=== PATIENT | female | born 1980 | race Caucasian/White ===

== ENCOUNTER 2019-09-18 16:03 | Emergency (ER) | payer BC, OTHER ==
[2019-09-18] MEDS ORDERED: ACETAMINOPHEN 1000 MG/100 ML VIAL (NON FORMULARY) IVPB ONE (16:10)
[2019-09-18] MEDS ORDERED: SODIUM CHLORIDE 1,000 ML IV STA (16:10)
--- NOTE | 2019-09-18 16:10 | PDOC ---
Rapid Medical Evaluation Time Seen by Provider: 09/18/19 16:05 Medical Evaluation: 09/18/19 16:05 I have performed a brief in-person evaluation of this patient. CC: R pelvic pain radiating to back; +intermittent nausea PE: No CVAT. Abd SNTND. Orders: urine, labs, imaging deferred to ED provider Patient will proceed to ED for further evaluation. Discharge Disposition - Diagnosis Pelvic pain - Referrals - Patient Instructions - Post Discharge Activity
[2019-09-18 16:21] VITALS: BMI 34.1
[2019-09-18] MEDS ORDERED: ACETAMINOPHEN INJECTION 100 ML IVPB ONE ×2 (17:03→17:09)
[2019-09-18] MEDS ORDERED: CEFTRIAXONE 250 MG in DEXTROSE 5%-WATER - 50 ML IVPB ONE (17:03)
[2019-09-18] MEDS ORDERED: AZITHROMYCIN 500 MG TABLET PO ONE ×2 (17:06→20:22)
[2019-09-18 17:09] LABS: BASO % 0.7 % (0-2.0); EOS % 0.2 % (0-4.5); HEMATOCRIT 37.4 % (32.4-45.2); HEMOGLOBIN 12.5 GM/dL (10.7-15.3); LYMPH % 16.5 % (8-40); MCH 29.8 pg (25.7-33.7); MCHC 33.5 g/dl (32.0-36.0); MEAN PLT VOLUME 8.3 fl (7.5-11.1); MONO % 6.6 % (3.8-10.2); PLATELET COUNT 147 K/MM3 (134-434); RBC 4.21 M/mm3 (3.60-5.2); RDW 13.5 % (11.6-15.6); WHITE BLOOD COUNT 4.2 K/mm3 (4.0-10.0)
[2019-09-18 17:10] LABS: EPI CELLS 11 /uL (0-25.1); HYALINE CASTS 1 /uL (0-3.1); PH,URINE 5.5 (5.0-8.0); URINE APPEARANCE CLEAR; URINE BACTERIA 232 /uL (0-1359); URINE BILIRUBIN NEGATIVE (NEGATIVE); URINE COLOR YELLOW; URINE GLUCOSE (UA) NEGATIVE (NEGATIVE); URINE KETONE TRACE (NEGATIVE); URINE LEUK ESTERASE 1+ (NEGATIVE); URINE NITRITE NEGATIVE (NEGATIVE); URINE PROTEIN NEGATIVE (NEGATIVE); URINE RBC 29 /uL (0-23.9); URINE UROBILINOGEN 0.2 mg/dL (0.2-1.0); URINE WBC 52 /uL (0-25.8)
--- NOTE | 2019-09-18 17:12 | PDOC ---
History of Present Illness - General Chief Complaint: Pain Stated Complaint: FEVER/LOWER ABD PAIN Time Seen by Provider: 09/18/19 16:05 History Source: Patient Exam Limitations: Clinical Condition - History of Present Illness Travel History: No Initial Comments: 09/18/19 17:08 Patient with no significant past medical history present with complaint of 2-day history of right pelvic pain with fever which started at 99.9 yesterday and last worsened to 102 F overnight. Patient reported nausea but denies vomiting. Patient sexually active with one partner and reported use condoms every time. Patient not on any other control. LMP August 30. Denies vaginal discharge, vaginal bleeding, urinary frequency, history of abdominal surgery, shortness of breath, cough, chest pain, palpitation. Denies recent travel or sick contact. Patient reported going to PCP today for symptoms and was advised to come to the ER to rule out appendicitis. Denies any other symptoms Timing/Duration: reports: getting worse Quality: reports: moderate, aching Abdominal Pain Onset Location: reports: RLQ, other (right pelvic) Past History - Medical History Allergies/Adverse Reactions: Allergies Allergy/AdvReac Type Severity Reaction Status Date / Time No Known Allergies Allergy Verified 09/18/19 16:13 Home Medications: Ambulatory Orders Doxycycline Hyclate 100 mg PO BID 10 Days #20 tablet 09/18/19 Escitalopram Oxalate [Lexapro -] 10 mg PO DAILY 09/18/19 Ibuprofen 800 mg PO Q8H PRN #20 tablet 09/18/19 - Psycho-Social/Smoking History Smoking History: Never smoked - Substance Abuse Hx (Audit-C & DAST Scrn) How often the patient has a drink containing alcohol: Never Score: In Men: 4 or > Positive; In Women: 3 or > Positive: 0 Screen Result (Pos requires Nsg. Audit-10AR): Negative Review of Systems - Review of Systems Able to Perform ROS?: Yes Is the patient limited Welsh proficient: No Constitutional: Yes: Fever. No: Chills, Malaise, Weakness HEENTM: No: Symptoms Reported, See HPI, Eye Pain, Blurred Vision, Tearing, Recent change in vision, Double Vision, Cataracts, Ear Pain, Ocular Prothesis, Ear Discharge, Nose Pain, Nose Congestion, Tinnitus, Nose Bleeding, Hearing Loss, Throat Pain, Throat Swelling, Mouth Pain, Dental Problems, Difficulty Swallowing, Mouth Swelling, Other Respiratory: No: Symptoms reported, See HPI, Cough, Orthopnea, Shortness of Breath, SOB with Exertion, SOB at Rest, Stridor, Wheezing, Productive cough, Hemoptysis, Other Cardiac (ROS): No: Symptoms Reported, See HPI, Chest Pain, Edema, Irregular Heart Rate, Lightheadedness, Palpitations, Syncope, Chest Tightness, Other ABD/GI: Yes: Symptoms Reported, See HPI, Nausea. No: Abd. Pain w/ defecation, Blood Streaked Bowels, Constipated, Diarrhea, Difficulty Swallowing, Poor Appetite, Rectal Bleeding, Vomiting, Indigestion, Abdominal cramping : Yes: Symptoms Reported, See HPI, Pain (right pelvic pain), Urgency. No: Burning, Dysuria, Discharge, Frequency, Flank Pain, Hematuria Musculoskeletal: No: Symptoms Reported, Back Pain Neurological: No: Symptoms reported All Other Systems: Reviewed and Negative *Physical Exam - Vital Signs Last Vital Signs Temp Pulse Resp BP Pulse Ox 100.1 F H 137 H 17 136/92 98 09/18/19 16:06 09/18/19 16:06 09/18/19 16:06 09/18/19 16:06 09/18/19 16:06 - Physical Exam General Appearance: Yes: Nourished, Appropriately Dressed. No: Apparent Distress HEENT: positive: AYLIN, Normal ENT Inspection Neck: positive: Supple Respiratory/Chest: positive: Lungs Clear, Normal Breath Sounds. negative: Chest Tender, Respiratory Distress, Accessory Muscle Use Cardiovascular: positive: Regular Rhythm, Regular Rate Female Pelvic Exam: positive: normal external exam, cervical os closed, normal adnexa, CMT (right CMT), discharge (moderate white discharge in vaginal vault), adnexal tenderness (right pelvic). negative: lesions, vaginal bleeding Gastrointestinal/Abdominal: positive: Normal Bowel Sounds, Flat, Soft. negative: Tender Musculoskeletal: positive: Normal Inspection. negative: CVA Tenderness Extremity: positive: Normal Capillary Refill, Normal Inspection, Normal Range of Motion Integumentary: positive: Normal Color Neurologic: positive: Fully Oriented, Alert, Normal Mood/Affect, Normal Response ED Treatment Course - LABORATORY CBC & Chemistry Diagram: 09/18/19 16:34 09/18/19 16:34 - RADIOLOGY Radiology Studies Ordered: Category Date Time Status TRANSVAGINAL ULTRASOUND US [US] Stat Ultrasound 09/18/19 16:52 Ordered Medical Decision Making - Medical Decision Making 09/18/19 17:10 Patient with no significant past medical history present with complaint of 2-day history of right pelvic pain with fever which started at 99.9 yesterday and last worsened to 102 F overnight. Patient reported nausea but denies vomiting. Patient sexually active with one partner and reported use condoms every time. Patient not on any other control. LMP August 30. Denies vaginal discharge, vaginal bleeding, urinary frequency, history of abdominal surgery, shortness of breath, cough, chest pain, palpitation. Denies recent travel or sick contact. Patient reported going to PCP today for symptoms and was advised to come to the ER to rule out appendicitis. Denies any other symptoms Exam significant for moderate tenderness to right pelvic. No abdominal tenderness. No guarding or rebound. Right cervical motion tenderness on pelvic exam with moderate white discharge in vaginal vault. No visible lesions. No CVA tenderness. Patient with low-grade temperature of 100.1 F Symptoms likely PID versus tubo-ovarian abscess versus cystitis versus less likely appendicitis. CBC, CMP, UA, urine culture and urine hCG lab ordered. Pelvic ultrasound ordered to rule out PID or tubo-ovarian abscess. IV Tylenol 1 g ordered for pain and fever. IV hydration with normal saline 1 L ordered. Genital culture of vaginal discharge obtained and sent to lab. Will treat empirically for PID with ceftriaxone 250 mg and will add azithromycin p.o. 1 g after imaging results. 09/18/19 19:32 CBC unremarkable. Chemistry unremarkable. Urine test negative. Pelvic ultrasound shows 1 cm right ovarian cyst with no other findings. Given symptoms of right side pain, will do abdominal pelvic CT with IV contrast to rule out appendicitis. Patient be discharged home on doxycycline for PID if negative CT with [facility]PERATIONS ACCOUNTANT follow-up 09/18/19 20:[address] shows no appendicitis and again showed wide 1 cm ovarian cyst. Unlikely ovarian cyst causing patient fever. Will treat empirically for PID on doxycycline twice daily for 10 days. Azithromycin 1 g p.o. given in the ED prior to discharge. Patient advised to follow-up with [facility]ATIONS [facility]ANT Discharge - Discharge Information Problems reviewed: Yes Clinical Impression/Diagnosis: Pelvic pain Fever Qualifiers: Fever type: unspecified Qualified Code(s): R50.9 - Fever, unspecified Condition: Stable Disposition: HOME - Admission No - Additional Discharge Information Prescriptions: Doxycycline Hyclate 100 mg PO BID 10 Days #20 tablet Ibuprofen 800 mg PO Q8H PRN #20 tablet PRN Reason: pain - Follow up/Referral Referrals: Nina Smalls MD [Primary Care Provider] - - Patient Discharge Instructions Patient Printed Discharge Instructions: DI for Pelvic Inflammatory Disease Additional Instructions: Your blood work was normal. Your urine shows small bacteria but does not show UTI. Urine culture sent to lab which takes a few days to come back. Ultrasound done shows small ovarian cyst on the right which could also cause pain but given pelvic pain and fever, will start you on antibiotics pending urine culture results. CAT scan done shows no appendicitis or acute abdominal abnormality. Follow-up with your OPERATIONS ACCOUNTANT - Post Discharge Activity
[2019-09-18 17:39] LABS: ALBUMIN 3.8 g/dl (3.4-5.0); BILIRUBIN,TOTAL 0.5 mg/dL (0.2-1); BLOOD UREA NITROGEN 9.2 mg/dL (7-18); CALCIUM 8.5 mg/dL (8.5-10.1); POTASSIUM 3.8 mmol/L (3.5-5.1); TOT PROT 7.5 g/dl (6.4-8.2)
[2019-09-18 18:09] LABS: HCG,QUALITATIVE URINE NEGATIVE
[2019-09-18 19:53] VITALS: BP 117/73; PULSE 85; TEMP 98.7
[2019-09-18] MEDS ORDERED: AZITHROMYCIN 500 MG TABLET ONE (20:23)
--- NOTE | 2019-09-19 10:26 | EKG ---
Test Reason : Blood Pressure : / mmHG Vent. Rate : 120 BPM Atrial Rate : 120 BPM P-R Int : 142 ms QRS Dur : 092 ms QT Int : 298 ms P-R-T Axes : 052 043 045 degrees QTc Int : 421 ms SINUS TACHYCARDIA POSSIBLE LEFT ATRIAL ENLARGEMENT INCOMPLETE RIGHT BUNDLE BRANCH BLOCK WHEN COMPARED WITH ECG OF 19-OCT-2006 10:24, VENT. RATE HAS INCREASED BY 40 BPM Confirmed by GOVIND DICKENS MD ([id number]) on 09/19/2019 10:25:50 AM Referred By: Confirmed By:GOVIND DICKENS MD
== END 2019-09-18 20:31 | disposition home or self-care (01) ==
LOC: JER 16:03
PROC: 3E0333Z Introduction of Anti-inflammatory into Peripheral Vein, Percutaneous Approach (ICD-10-PCS; principal; 2019-09-18)
PROC: 3E033GC Introduction of Other Therapeutic Substance into Peripheral Vein, Percutaneous Approach (ICD-10-PCS; 2019-09-18)
PROC: 3E0337Z Introduction of Electrolytic and Water Balance Substance into Peripheral Vein, Percutaneous Approach (ICD-10-PCS; 2019-09-18)
DX: R10.2 Pelvic and perineal pain (principal); R50.9 Fever, unspecified
CPT/HCPCS: 36415; 74177-TC; 76830-TC; 80053; 81003; 83690; 84703; 85025; 87070; 87086; 87205; 87491; 87591; 93005; 93010; 99285-25; J0131; Q9967

== ENCOUNTER 2019-09-24 13:30 | Inpatient (IN) | payer BC, OTHER ==
--- NOTE | 2019-09-24 13:45 | PDOC ---
Rapid Medical Evaluation Chief Complaint: Abnormal Lab Results (Outside) Time Seen by Provider: 09/24/19 13:34 Medical Evaluation: Allergies Allergy/AdvReac Type Severity Reaction Status Date / Time No Known Allergies Allergy Verified 09/24/19 13:35 Vital Signs Temp Pulse Resp BP Pulse Ox 99.1 F 111 H 19 139/73 100 09/24/19 13:33 09/24/19 13:33 09/24/19 13:33 09/24/19 13:33 09/24/19 13:33 09/24/19 13:37 I have performed a brief in-person evaluation of this patient. The patient presents with a chief complaint of:Dx w/ PID 09/17 and on doxy. Gc/chlam and ucx neg. US on last visit w/ R ovarian cyst w/ free fluid to right pelvis, CT neg for appy but showed lymph nodes in R pelvis per records. Labs were unremarkable on prior visit, sent in by pmd as multiple abnl on labs today, told "my wbc and rbc low" and LFTs elevated. No sig pain now and no n/v/f/c Pertinent physical exam findings:Tachy to 111, well kraig I have ordered the following:labs The patient will proceed to the ED for further evaluation. 09/24/19 13:49 Discharge Disposition - Diagnosis PID (acute pelvic inflammatory disease) - Referrals - Patient Instructions - Post Discharge Activity
[2019-09-24 14:20] LABS: BASO % 0.7 % (0-2.0); EOS % 0.4 % (0-4.5); HEMOGLOBIN 11.3 GM/dL (10.7-15.3); LYMPH % 66.3 % (8-40); MCH 29.6 pg (25.7-33.7); MCHC 33.2 g/dl (32.0-36.0); MEAN CELL VOLUME 89.1 fl (80-96); MEAN PLT VOLUME 8.9 fl (7.5-11.1); MONO % 4.4 % (3.8-10.2); NEUT % 28.2 % (42.8-82.8); PLATELET COUNT 106 K/MM3 (134-434); RBC 3.82 M/mm3 (3.60-5.2); RDW 13.8 % (11.6-15.6); WHITE BLOOD COUNT 5.1 K/mm3 (4.0-10.0)
[2019-09-24 14:43] LABS: ANISOCYTOSIS 0; MACROCYTOSIS 0; PLATELET ESTIMATE DECREASED
[2019-09-24 14:58] LABS: ALBUMIN 3.3 g/dl (3.4-5.0); BILIRUBIN,TOTAL 0.7 mg/dL (0.2-1); BLOOD UREA NITROGEN 9.7 mg/dL (7-18); CALCIUM 8.9 mg/dL (8.5-10.1); CREATININE 0.8 mg/dL (0.55-1.3); POTASSIUM 4.1 mmol/L (3.5-5.1); TOT PROT 7.1 g/dl (6.4-8.2)
--- NOTE | 2019-09-24 15:08 | PDOC ---
History of Present Illness - General Chief Complaint: Abnormal Lab Results (Outside) Stated Complaint: ABN LABS Time Seen by Provider: 09/24/19 13:34 History Source: Patient Exam Limitations: No Limitations - History of Present Illness Initial Comments: 09/24/19 15:06 39-year-old female denies past medical history sent to ED by Nina Douglas for abnormal labs. Patient was seen in the ED September 17 for right-sided pelvic pain, fever and nausea. Had an ultrasound which showed a 1 cm right ovarian cyst, a CT which ruled out appendicitis, negative gonorrhea chlamydia and was discharged with doxycycline 100 mg twice daily for 10 days for presumed PID given mild right-sided CMT on pelvic exam. 2 days ago patient followed up with Dr. Smalls given persistent fever T-max 102 despite taking ibuprofen 800 mg every 6-[address] Smalls called patient today instructing her to come to ER given decreased platelet count and increased LFTs. Patient also reports a negative COVID test 2 days ago. At this time patient has no pelvic pain. Of note patient had a mechanical slip and fall down 4 steps on her back causing injury to right low back 2 hours prior to following up with Dr. Smalls 2 days ago. Denies head strike, headache, neck pain, nausea, vomiting, chest pain, shortness of breath or any other complaints. ROS: as above PE: GENERAL: well-appearing, NAD HEAD: NCAT EYES: Pupils equal, round and reactive to light, sclera anicteric, conjunctiva clear ENT: pharynx: no erythema, no exudate, uvula midline NECK: supple CHEST: nontender RESP: clear, no w/r/r CARDIO: rrr, no m/g/r ABD: +BS, soft, nontender, non distended : Deferred BACK: no midline spinal ttp, no CVAT, large ecchymotic area to right low back and flank, soft compartments EXTREMITIES: Normal range of motion, no edema NEUROLOGICAL: Normal speech, normal gait SKIN: Warm, Dry Is this a multiple visit Asthma Patient?: No Past History - Medical History Allergies/Adverse Reactions: Allergies Allergy/AdvReac Type Severity Reaction Status Date / Time No Known Allergies Allergy Verified 09/24/19 13:35 Home Medications: Ambulatory Orders Doxycycline Hyclate 100 mg PO BID 10 Days #20 tablet 09/18/19 Escitalopram Oxalate [Lexapro -] 10 mg PO DAILY 09/18/19 Ibuprofen 800 mg PO Q8H PRN #20 tablet 09/18/19 COPD: No - Immunization History Immunization Up to Date: No - Psycho-Social/Smoking History Smoking History: Never smoked Information on smoking cessation initiated: No - Substance Abuse Hx (Audit-C & DAST Scrn) How often the patient has a drink containing alcohol: Never Score: In Men: 4 or > Positive; In Women: 3 or > Positive: 0 Screen Result (Pos requires Nsg. Audit-10AR): Negative In the last yr the pt used illegal drug/Rx for NonMed reason: No Score: Yes response is considered Positive: 0 Screen Result (Positive result requires Nsg. DAST-10): Negative *Physical Exam - Vital Signs Last Vital Signs Temp Pulse Resp BP Pulse Ox 99.1 F 111 H 19 139/73 100 09/24/19 13:33 09/24/19 13:33 09/24/19 13:33 09/24/19 13:33 09/24/19 13:33 ED Treatment Course - LABORATORY CBC & Chemistry Diagram: 09/24/19 14:00 09/24/19 14:00 - ADDITIONAL ORDERS Additional order review: Laboratory Results 09/24/19 14:00 Sodium 138 Potassium 4.1 Chloride 105 Carbon Dioxide 25 Anion Gap 8 BUN 9.7 Creatinine 0.8 Est GFR (CKD-EPI)AfAm 109.16 Est GFR (CKD-EPI)NonAf 94.18 Random Glucose 94 Calcium 8.9 Total Bilirubin 0.7 AST 372 H ALT 427 H Alkaline Phosphatase 216 H Total Protein 7.1 Albumin 3.3 L 09/24/19 14:00 RBC 3.82 MCV 89.1 MCHC 33.2 RDW 13.8 MPV 8.9 Neutrophils % 28.2 L D Lymphocytes % 66.3 H D Monocytes % 4.4 Eosinophils % 0.4 D Basophils % 0.7 Medical Decision Making - Medical Decision Making 09/24/19 15:50 39-year-old female denies past medical history sent to ED by Nina Douglas for abnormal labs. Patient was seen in the ED September 17 for right-sided pelvic pain, fever and nausea. Had an ultrasound which showed a 1 cm right ovarian cyst, a CT which ruled out appendicitis, negative gonorrhea chlamydia and was discharged with doxycycline 100 mg twice daily for 10 days for presumed PID given mild right-sided CMT on pelvic exam. 2 days ago patient followed up with Dr. Smalls given persistent fever T-max 102 despite taking ibuprofen 800 mg every 6-[address] Smalls called patient today instructing her to come to ER given decreased platelet count and increased LFTs. Patient also reports a negative COVID test 2 days ago. At this time patient has no pelvic pain. Of note patient had a mechanical slip and fall down 4 steps on her back causing injury to right low back 2 hours prior to following up with Dr. Smalls 2 days ago. Denies head strike, headache, neck pain, nausea, vomiting, chest pain, shortness of breath or any other complaints. CTAP 09/18/19 -enlarged right inguinal and right pelvic lymph nodes AST 372 ALT 427 Alk phos 216 plt 106 decrease from 09/18/19 plt [address] Smalls who would like patient admitted for hematology (Yonas Henry) and infectious disease (Dr. Isaacs) consultation and further work-up. Discussed with patient and she agrees with admission Discharge - Discharge Information Problems reviewed: Yes Clinical Impression/Diagnosis: PID (acute pelvic inflammatory disease) Fever Qualifiers: Fever type: unspecified Qualified Code(s): R50.9 - Fever, unspecified - Admission Yes - Follow up/Referral - Patient Discharge Instructions - Post Discharge Activity
[2019-09-24] MEDS ORDERED: ACETAMINOPHEN 325 MG TABLET (FP) PO PRN (16:16)
[2019-09-24 16:24] LABS: HCG,QUALITATIVE URINE Negative
[2019-09-24 16:25] LABS: EPI CELLS 32 /uL (0-25.1); HYALINE CASTS 7 /uL (0-3.1); PH,URINE 5.5 (5.0-8.0); URINE APPEARANCE CLOUDY; URINE BACTERIA 119 /uL (0-1359); URINE BILIRUBIN NEGATIVE (NEGATIVE); URINE COLOR DK YELLOW; URINE GLUCOSE (UA) NEGATIVE (NEGATIVE); URINE KETONE TRACE (NEGATIVE); URINE LEUK ESTERASE TRACE (NEGATIVE); URINE NITRITE NEGATIVE (NEGATIVE); URINE PROTEIN 1+ (NEGATIVE); URINE RBC 3868 /uL (0-23.9); URINE WBC 27 /uL (0-25.8)
[2019-09-24] MEDS ORDERED: ACETAMINOPHEN 325 MG TABLET (FP) ONE (17:01)
[2019-09-24] MEDS: D5-1/2NS+20 MEQ KCL - 20 MEQ/1,000 ML INFUS.BAG IV SCH (17:20)
[2019-09-24 18:25] VITALS: BMI 35.4
[2019-09-24 19:57] LABS: INR 1.11 (0.83-1.09); PROTHROMBIN TIME (PATIENT) 13.1 SEC (9.7-13.0)
[2019-09-24] MEDS: ACETAMINOPHEN 325 MG TABLET (FP) PO PRN (21:50)
--- NOTE | 2019-09-24 22:32 | CON.HO ---
Consult - text type - Consultation Consultation Note: 39-year-old female denies past medical history sent to ED by Nina Douglas for abnormal labs. Patient was seen in the ED September 17 for right-sided pelvic pain, fever and nausea. Had an ultrasound which showed a 1 cm right ovarian cyst, a CT which ruled out appendicitis, negative gonorrhea chlamydia and was discharged with doxycycline 100 mg twice daily for 10 days for presumed PID given mild right-sided CMT on pelvic exam. 2 days ago patient followed up with Dr. Smalls given persistent fever T-max 102 despite taking ibuprofen 800 mg every 6-[address] Smalls called patient today instructing her to come to ER given decreased platelet count and increased LFTs. Patient also reports a negative COVID test 2 days ago. At this time patient has no pelvic pain. Reports rt. sided pelvic pain improved after starting doxycycline but fevers persisted Reports being in good health until 1 week ago when RLQ pain and fevers started Had protected sex 1 month ago Allergies/Adverse Reactions: Allergies Allergy/AdvReac Type Severity Reaction Status Date / Time No Known Allergies Allergy Verified 09/24/19 13:35 Home Medications: Ambulatory Orders Doxycycline Hyclate 100 mg PO BID 10 Days #20 tablet 09/18/19 Escitalopram Oxalate [Lexapro -] 10 mg PO DAILY 09/18/19 Ibuprofen 800 mg PO Q8H PRN #20 tablet 09/18/19 - Psycho-Social/Smoking History Smoking History: Never smoked - Substance Abuse Hx (Audit-C & DAST Scrn) How often the patient has a drink containing alcohol: Never Score: In Men: 4 or > Positive; In Women: 3 or > Positive: 0 Screen Result (Pos requires Nsg. Audit-10AR): Negative In the last yr the pt used illegal drug/Rx for NonMed reason: No Score: Yes response is considered Positive: 0 Screen Result (Positive result requires Nsg. DAST-10): Negative *Physical Exam - Vital Signs Last Vital Signs Temp Pulse Resp BP Pulse Ox 99.1 F 111 H 19 139/73 100 09/24/19 13:33 09/24/19 13:33 09/24/19 13:33 09/24/19 13:33 09/24/19 13:33 - ADDITIONAL ORDERS Additional order review: Laboratory Results 09/24/19 14:00 Sodium 138 Potassium 4.1 Chloride 105 Carbon Dioxide 25 Anion Gap 8 BUN 9.7 Creatinine 0.8 Est GFR (CKD-EPI)AfAm 109.16 Est GFR (CKD-EPI)NonAf 94.18 Random Glucose 94 Calcium 8.9 Total Bilirubin 0.7 AST 372 H ALT 427 H Alkaline Phosphatase 216 H Total Protein 7.1 Albumin 3.3 L 09/24/19 14:00 RBC 3.82 MCV 89.1 MCHC 33.2 RDW 13.8 MPV 8.9 Neutrophils % 28.2 L D Lymphocytes % 66.3 H D Monocytes % 4.4 Eosinophils % 0.4 D Basophils % 0.7 A/P 39-year-old female denies past medical history sent to ED by Nina Douglas for abnormal labs. Patient was seen in the ED September 17 for right-sided pelvic pain, fever and nausea. Had an ultrasound which showed a 1 cm right ovarian cyst, a CT which ruled out appendicitis, negative gonorrhea chlamydia and was discharged with doxycycline 100 mg twice daily for 10 days for presumed PID given mild right-sided CMT on pelvic exam. 2 days ago patient followed up with Dr. Smalls given persistent fever T-max 102 despite taking ibuprofen 800 mg every 6-[address] Smalls called patient today instructing her to come to ER given decreased platelet count and increased LFTs. Patient also reports a negative COVID test 2 days ago. At this time patient has no pelvic pain. Reports rt. sided pelvic pain improved after starting doxycycline but fevers persisted Reports being in good health until 1 week ago when RLQ pain and fevers started Had protected sex 1 month ago CTAP 09/18/19 -enlarged right inguinal and right pelvic lymph nodes AST 372 ALT 427 Alk phos 216 plt 106 decrease from 09/18/19 plt 147 ANC 1400 ? pelvic inflammatory disease r/o infectious/inflammatory/neoplastic processes check flowcytometry/HIV/PRANEETH/RF/hep. serologies ? EBV pcr/LDH/COVID check chest CT/inguinal u/s
[2019-09-25 01:53] LABS: URINE APPEARANCE CLEAR; URINE BILIRUBIN NEGATIVE (NEGATIVE); URINE COLOR YELLOW; URINE GLUCOSE (UA) NEGATIVE (NEGATIVE)
[2019-09-25 01:54] LABS: URINE KETONE NEGATIVE (NEGATIVE); URINE LEUK ESTERASE N (NEGATIVE); URINE NITRITE NEGATIVE (NEGATIVE); URINE PROTEIN N (NEGATIVE); URINE UROBILINOGEN 0.2 mg/dL (0.2-1.0)
[2019-09-25 01:55] LABS: EPI CELLS 9 /uL (0-25.1); HYALINE CASTS 0.5 /uL (0-3.1); URINE BACTERIA 10 /uL (0-1359); URINE RBC 1932 /uL (0-23.9); URINE WBC 12 /uL (0-25.8)
[2019-09-25] MEDS: ACETAMINOPHEN 325 MG TABLET (FP) PO PRN (03:05)
[2019-09-25] MEDS: D5-1/2NS+20 MEQ KCL - 20 MEQ/1,000 ML INFUS.BAG IV SCH (06:24)
--- NOTE | 2019-09-25 08:16 | HP ---
Admitting History and Physical - Primary Care Physician PCP: 1 - Past Medical History Cardiovascular: No: Deep Vein Thrombosis, HTN Pulmonary: No: Cancer Gastrointestinal: No: Cancer, Crohn's Disease ...LMP: 09/22/19 ...: No Psych: Yes: Anxiety - Smoking History Smoking history: Never smoked Have you smoked in the past 12 months: No Home Medications - Allergies Allergies/Adverse Reactions: Allergies Allergy/AdvReac Type Severity Reaction Status Date / Time No Known Allergies Allergy Verified 09/24/19 13:35 - Home Medications Home Medications: Ambulatory Orders Doxycycline Hyclate 100 mg PO BID 10 Days #20 tablet 09/18/19 Escitalopram Oxalate [Lexapro -] 10 mg PO DAILY 09/18/19 Ibuprofen 800 mg PO Q8H PRN #20 tablet 09/18/19 Review of Systems - Review of Systems Neck: reports: No Symptoms Cardiovascular: reports: No Symptoms Respiratory: reports: No Symptoms Gastrointestinal: reports: Abdominal Pain (rlq which has resolved) Physical Examination Vital Signs: Vital Signs Temperature 98.3 F 09/25/19 05:00 Pulse Rate 102 H 09/25/19 05:00 Respiratory Rate 18 09/25/19 05:00 Blood Pressure 137/75 09/25/19 05:00 O2 Sat by Pulse Oximetry (%) 94 L 09/25/19 05:00 Neck: Yes: Supple Cardiovascular: Yes: Regular Rate and Rhythm Respiratory: Yes: Regular, CTA Bilaterally Gastrointestinal: Yes: Normal Bowel Sounds, Soft. No: Tenderness Extremities: Yes: WNL Neurological: Yes: Alert, Oriented Labs: CBC, BMP 09/24/19 14:00 09/24/19 14:00 Imaging - Results Cat Scan: Report Reviewed Problem List - Problems (1) Lymphadenopathy Assessment/Plan: -Oncology on board -Labs ordered -CT Chest Code(s): R59.1 - GENERALIZED ENLARGED LYMPH NODES (2) Abnormal LFTs Assessment/Plan: -R/O Viral etiology VS meds -Trending UP -Hepatitis panel ordered -US -GI consult Code(s): R94.5 - ABNORMAL RESULTS OF LIVER FUNCTION STUDIES (3) Thrombocytopenia Assessment/Plan: -HEM on Board -Follow labs Code(s): D69.6 - THROMBOCYTOPENIA, UNSPECIFIED (4) Fever Assessment/Plan: Was spiking at home on abx monitor trends ID consult Code(s): R50.9 - FEVER, UNSPECIFIED Qualifiers: Fever type: unspecified Qualified Code(s): R50.9 - Fever, unspecified (5) Pelvic pain Assessment/Plan: Resolved gc and chlamydia negative Code(s): R10.2 - PELVIC AND PERINEAL PAIN
[2019-09-25 08:44] LABS: BASO % 0.7 % (0-2.0); EOS % 0.7 % (0-4.5); HEMATOCRIT 31.7 % (32.4-45.2); HEMOGLOBIN 10.6 GM/dL (10.7-15.3); LYMPH % 74.1 % (8-40); MCH 29.8 pg (25.7-33.7); MCHC 33.5 g/dl (32.0-36.0); MEAN CELL VOLUME 88.9 fl (80-96); MEAN PLT VOLUME 8.7 fl (7.5-11.1); MONO % 3.5 % (3.8-10.2); PLATELET COUNT 108 K/MM3 (134-434); RBC 3.57 M/mm3 (3.60-5.2); RDW 13.7 % (11.6-15.6); WHITE BLOOD COUNT 4.4 K/mm3 (4.0-10.0)
[2019-09-25 08:51] LABS: INR 1.06 (0.83-1.09); PROTHROMBIN TIME (PATIENT) 12.5 SEC (9.7-13.0)
[2019-09-25 08:53] LABS: ACTIVATED PTT 34.1 SECONDS (25.2-36.5)
[2019-09-25 09:20] LABS: LDH 498 U/L (84-246)
[2019-09-25 09:23] LABS: ALK PHOS 198 U/L (45-117); ANION GAP 8 MMOL/L (8-16); BILIRUBIN,TOTAL 0.5 mg/dL (0.2-1); BLOOD UREA NITROGEN 7.1 mg/dL (7-18); CALCIUM 8.4 mg/dL (8.5-10.1); CHLORIDE 109 mmol/L (98-107); CO2 25 mmol/L (21-32); CREATININE 0.8 mg/dL (0.55-1.3); GLUCOSE,RANDOM 94 mg/dL (74-106); SGOT/AST 284 U/L (15-37); SGPT/ALT 392 U/L (13-61); SODIUM 142 mmol/L (136-145); TOT PROT 6.8 g/dl (6.4-8.2)
[2019-09-25 09:36] LABS: ANISOCYTOSIS 1+; MACROCYTOSIS 0; PLATELET ESTIMATE DECREASED
[2019-09-25 09:42] LABS: GAMMA GLUTAMYL TRANSPEPTIDASE 190 U/L (5-85); URIC ACID 4.5 mg/dL (2.6-7.2)
--- NOTE | 2019-09-25 10:46 | PN ---
Physical Exam: SUBJECTIVE: Patient seen and examined. Pt. denies this ever happening before. Pt. states her abdominal pain has resolved. Pt. endorses having an unremarkable Pap-Smear 2 years ago and states all have been negative in the past. Pt. is looking for a new PHYSICAL MEDICINE PHYSICIAN. Pt. OBJECTIVE: Vital Signs Period Temp Pulse Resp BP Sys/Negrete Pulse Ox Last 24 Hr 97.9 F-99.8 F 89-111 16-19 106-139/67-80 94-100 GENERAL: The patient is awake, alert, and fully oriented, in no acute distress. HEAD: Normal with no signs of trauma. EYES: Sclera anicteric, conjunctiva clear. ENT: Ears normal, nares patent, oropharynx clear without exudates, moist mucous membranes. LUNGS: Breath sounds equal, clear to auscultation bilaterally, no wheezes, no crackles, no accessory muscle use. HEART: Regular rate and rhythm, S1, S2 without murmur ABDOMEN: Soft, nontender, nondistended, normoactive bowel sounds, no guarding, no rebound, no hepatosplenomegaly, no masses. EXTREMITIES: 2+ dorsal pedal pulses, warm, well-perfused, n calf tenderness, no edema. NEUROLOGICAL: Normal speech, gait not observed. PSYCH: Normal mood, normal affect. SKIN: Warm, dry, normal turgor Laboratory Results - last 24 hr 09/24/19 09/24/19 09/24/19 14:00 14:00 16:00 WBC 5.1 RBC 3.82 Hgb 11.3 Hct 34.0 MCV 89.1 MCH 29.6 MCHC 33.2 RDW 13.8 Plt Count 106 L D MPV 8.9 Absolute Neuts (auto) 1.4 L Neutrophils % 28.2 L D Neutrophils % (Manual) 21.0 L Band Neutrophils % 9.0 Lymphocytes % 66.3 H D Lymphocytes % (Manual) 29.0 Monocytes % 4.4 Monocytes % (Manual) 7 Eosinophils % 0.4 D Eosinophils % (Manual) 0.0 Basophils % 0.7 Basophils % (Manual) 0.0 Myelocytes % (Man) 0 Promyelocytes % (Man) 0 Blast Cells % (Manual) 0 Nucleated RBC % 0 Metamyelocytes 0 Hypochromia 0 Platelet Estimate Decreased Polychromasia 0 Poikilocytosis 0 Anisocytosis 0 Microcytosis 0 Macrocytosis 0 PT with INR INR PTT (Actin FS) Sodium 138 Potassium 4.1 Chloride 105 Carbon Dioxide 25 Anion Gap 8 BUN 9.7 Creatinine 0.8 Est GFR (CKD-EPI)AfAm 109.16 Est GFR (CKD-EPI)NonAf 94.18 Random Glucose 94 Uric Acid Calcium 8.9 Iron TIBC Iron Saturation Unsaturated IBC Ferritin Total Bilirubin 0.7 GGT AST 372 H ALT 427 H Alkaline Phosphatase 216 H LD Total C-Reactive Protein Total Protein 7.1 Albumin 3.3 L Vitamin B12 TSH Urine Color Dk yellow Urine Appearance Cloudy Urine pH 5.5 Ur Specific [place] 1.018 Urine Protein 1+ H Urine Glucose (UA) Negative Urine Ketones Trace H Urine Blood 3+ H Urine Nitrite Negative Urine Bilirubin Negative Urine Urobilinogen 1.0 Ur Leukocyte Esterase Trace Urine WBC (Auto) 27 Urine RBC (Auto) 3868 Urine Casts (Auto) 7 U Pathogenic Cast Auto No seen U Epithel Cells (Auto) 32 Urine Bacteria (Auto) 119 Urine HCG, Qual Negative Rheumatoid Factor 09/24/19 09/25/19 09/25/19 19:00 01:20 08:10 WBC 4.4 RBC 3.57 L Hgb 10.6 L Hct 31.7 L MCV 88.9 MCH 29.8 MCHC 33.5 RDW 13.7 Plt Count 108 L MPV 8.7 Absolute Neuts (auto) 0.9 L Neutrophils % 21.0 L D Neutrophils % (Manual) 16.0 L Band Neutrophils % 0.0 Lymphocytes % 74.1 H Lymphocytes % (Manual) 56.0 H D Monocytes % 3.5 L Monocytes % (Manual) 6 Eosinophils % 0.7 Eosinophils % (Manual) 0.0 Basophils % 0.7 Basophils % (Manual) 0.0 Myelocytes % (Man) 0 Promyelocytes % (Man) 0 Blast Cells % (Manual) 0 Nucleated RBC % 0 Metamyelocytes 2 D Hypochromia 0 Platelet Estimate Decreased Polychromasia 0 Poikilocytosis 0 Anisocytosis 1+ Microcytosis 1+ Macrocytosis 0 PT with INR 13.10 H INR 1.11 H PTT (Actin FS) Sodium Potassium Chloride Carbon Dioxide Anion Gap BUN Creatinine Est GFR (CKD-EPI)AfAm Est GFR (CKD-EPI)NonAf Random Glucose Uric Acid Calcium Iron TIBC Iron Saturation Unsaturated IBC Ferritin Total Bilirubin GGT AST ALT Alkaline Phosphatase LD Total C-Reactive Protein Total Protein Albumin Vitamin B12 TSH Urine Color Yellow Urine Appearance Clear Urine pH 6.0 Ur Specific [place] 1.057 H Urine Protein N Urine Glucose (UA) Negative Urine Ketones Negative Urine Blood 3+ H Urine Nitrite Negative Urine Bilirubin Negative Urine Urobilinogen 0.2 Ur Leukocyte Esterase N Urine WBC (Auto) 12 Urine RBC (Auto) 1932 Urine Casts (Auto) 0.5 U Pathogenic Cast Auto U Epithel Cells (Auto) 9 Urine Bacteria (Auto) 10 Urine HCG, Qual Rheumatoid Factor 09/25/19 09/25/19 09/25/19 08:10 08:10 08:10 WBC RBC Hgb Hct MCV MCH MCHC RDW Plt Count MPV Absolute Neuts (auto) Neutrophils % Neutrophils % (Manual) Band Neutrophils % Lymphocytes % Lymphocytes % (Manual) Monocytes % Monocytes % (Manual) Eosinophils % Eosinophils % (Manual) Basophils % Basophils % (Manual) Myelocytes % (Man) Promyelocytes % (Man) Blast Cells % (Manual) Nucleated RBC % Metamyelocytes Hypochromia Platelet Estimate Polychromasia Poikilocytosis Anisocytosis Microcytosis Macrocytosis PT with INR 12.50 INR 1.06 PTT (Actin FS) 34.1 Sodium 142 Potassium 4.0 Chloride 109 H Carbon Dioxide 25 Anion Gap 8 BUN 7.1 Creatinine 0.8 Est GFR (CKD-EPI)AfAm 109.16 Est GFR (CKD-EPI)NonAf 94.18 Random Glucose 94 Uric Acid 4.5 Calcium 8.4 L Iron 26 L TIBC 265 Iron Saturation 9 L Unsaturated IBC 239 Ferritin 289.4 Total Bilirubin 0.5 GGT 190 H AST 284 H ALT 392 H Alkaline Phosphatase 198 H LD Total 498 H C-Reactive Protein 4.2 H Total Protein 6.8 Albumin 3.0 L Vitamin B12 1217 H TSH 5.17 H Urine Color Urine Appearance Urine pH Ur Specific [place] Urine Protein Urine Glucose (UA) Urine Ketones Urine Blood Urine Nitrite Urine Bilirubin Urine Urobilinogen Ur Leukocyte Esterase Urine WBC (Auto) Urine RBC (Auto) Urine Casts (Auto) U Pathogenic Cast Auto U Epithel Cells (Auto) Urine Bacteria (Auto) Urine HCG, Qual Rheumatoid Factor < 10.0 Active Medications Generic Name Dose Route Start Last Admin Trade Name Freq PRN Reason Stop Dose Admin Acetaminophen 650 mg 09/24/19 20:11 09/25/19 03:05 Tylenol - PO 650 mg Q6H PRN Administration FEVER Potassium Chloride/Dextrose/Sod Cl 20 meq in 1,000 mls @ 83 mls/hr 09/24/19 16:30 09/25/19 06:24 D5-1/2ns+20 Meq Kcl - IV 83 mls/hr ASDIR MARY Administration ASSESSMENT/PLAN: Pt. is a 39 y.o. F w/o PMHx. presenting for abnormal labs. Patient was seen in the ED September 17 for right-sided pelvic pain, fever and nausea. Had an ultrasound which showed a 1 cm right ovarian cyst, a CT which ruled out appendicitis, negative gonorrhea chlamydia and was discharged with doxycycline 100 mg twice daily for 10 days for presumed PID given mild right-sided CMT on pelvic exam. Pt. return to ED for persistent fever to 103 at home despite taking Ibuprofen ever 6-8 hours. #Pancytopenia Pt. has elevated LFTs Platelets: 106k (decreased from 147k a week prior) CTAP 09/18/19 -enlarged right inguinal and right pelvic lymph nodes; Pelvic US shows the same Abd. US shows borderline hepatomegaly w/ 2 ?hemangiomata and marked splenomegaly (18.1cm) GI consult appreciated LFTs downtrending ID consult appreciated r/o infectious/inflammatory/neoplastic processes f/u flowcytometry, HIV, PRANEETH, RF, hepatitis panel, EBV pcr, LDH, COVID CT Chest negative for acute pathology TSH elevated, f/u fT4 GGT elevated (EtoH use?) Pt. noted to have decreased Neutrophils to 0.9, will continue to monitor CRP elevated to 4.2, LDH elevated to 498 UA significant for 3+ blood, high specific gravity and high RBCs; consider Nephrology consult for renal biopsy. Peripheral Smear as read by myself does not show obvious pathology except for decreased but adequate platelets and increased Lymphoctyes(both size and number) compared to Neutrophils. Monocytes had increased vacuolization consistent with increased inflammation Doxycycline is known to cause transaminitis, neutropenia and thombocytopenia- included in this differential is iatrogenic side effect of this Abx. Pt. will need CBC within 1 week (off Doxycycline) to ensure resolution. If blood counts are not resovling will need to follow-up with Heme-Onc as outpatient. Visit type - Emergency Visit Emergency Visit: Yes ED Registration Date: 09/24/19 Care time: The patient presented to the Emergency Department on the above date and was hospitalized for further evaluation of their emergent condition. - New Patient This patient is new to me today: Yes Date on this admission: 09/25/19 - Critical Care Critical Care patient: No - Discharge Referral Referred to [facility] No ATTENDING PHYSICIAN STATEMENT I saw and evaluated the patient. I reviewed the resident's note and discussed the case with the resident. I agree with the resident's findings and plan as documented. SUBJECTIVE: OBJECTIVE: ASSESSMENT AND PLAN:
--- NOTE | 2019-09-25 11:04 | PN ---
Progress Note (short form) - Note Progress Note: ID CONSULT DICTATED FUO LYMPHOCYTOSIS/ THROMBOCYTOPENIA ELEVATED LFTS ? VIRAL ? TICK- RELATED ILLNESS AWAIT REPEAT COVID HEPATITIS PANEL CMV,EBV, HIV LYME , ANAPLASMA, BABESIA OBSERVE OFF ANTIBIOTICS
--- NOTE | 2019-09-25 12:13 | EKG ---
Test Reason : Blood Pressure : / mmHG Vent. Rate : 091 BPM Atrial Rate : 091 BPM P-R Int : 144 ms QRS Dur : 092 ms QT Int : 348 ms P-R-T Axes : 044 015 022 degrees QTc Int : 428 ms NORMAL SINUS RHYTHM INCOMPLETE RIGHT BUNDLE BRANCH BLOCK BORDERLINE ECG WHEN COMPARED WITH ECG OF 18-SEP-2019 16:29, NO SIGNIFICANT CHANGE WAS FOUND Confirmed by AALIYAH MARIN MD ([id number]) on 09/25/2019 12:13:30 PM Referred By: Confirmed By:AALIYAH MARIN MD
--- NOTE | 2019-09-25 12:38 | CON.GI ---
Consult Consult Specialty:: GI: FOr Dr. Moeller who resumes care 09/25 Referred by:: Dr. Smalls Reason for Consultation:: Abnormal LFTs - History of Present Illness Chief Complaint: Fevers History of Present Illness: 39F admitted through [facility] ER for evaluation of fevers. States was in [place] up until , when she began experiencing fevers (>101). Came to ER, CBC/liver chemistries were normal at that time. Was sent home on doxyclycline for PID. Took three days of doxyclycline, fevers continued (103.5 highest). Seen by PMD Sunday, had bloodwork drawn, sent to ER yesterday due to abnormal blood work (elevated liver chemistries). 09/13 had pain in legs, otherwise no other complaints. No rash, known history of liver disease, abdominal pain. Was in [place] at her brother's pool last weekend, otherwise no travel. Denies unintentional weight loss, nigh sweats. No change in bowel habits. No insect bites that she is aware of. Was alternating ibuprofen and tylenol for her fevers. Has developed anemia and thrombocytopenia as well. US revealed fatty liver, non-dilated ducts, mild hepatomegaly, + splenomegaly. CT scan revealed inguinal lymphadenopathy, two liver nodules that could not be described any further by radiologist (questioned hemangiomas), hepatosplenomegaly. No family history of liver disease - Past Medical History Cardio/Vascular: No: Deep Vein Thrombosis, HTN Pulmonary: No: Cancer Gastrointestinal: No: Cancer, Crohn's Disease ...LMP: 09/22/19 ...: No Psych: Yes: Anxiety - Past Surgical History Additional Surgical History: Denies - Alcohol/Substance Use Hx Alcohol Use: No History of Substance Use: reports: None - Smoking History Smoking history: Never smoked Have you smoked in the past 12 months: No - Social History Usual Living Arrangement: Alone ADL: Independent Occupation: Works for [employer]. Place of : [facility] History of Recent Travel: No Home Medications - Allergies Allergies/Adverse Reactions: Allergies Allergy/AdvReac Type Severity Reaction Status Date / Time No Known Allergies Allergy Verified 09/24/19 13:35 - Home Medications Home Medications: Ambulatory Orders Doxycycline Hyclate 100 mg PO BID 10 Days #20 tablet 09/18/19 Escitalopram Oxalate [Lexapro -] 10 mg PO DAILY 09/18/19 Ibuprofen 800 mg PO Q8H PRN #20 tablet 09/18/19 Family Medical History Other Family History: Mother: Alive: HTN, hyperlipidemia. Father: Alive: HTN, Hyperlipidemia. 1 brother: healthy. No children. No family history of liver disease / colorectal cancer Review of Systems - Review of Systems Constitutional: reports: Chills, Fever. denies: Unintentional Wgt. Loss Cardiovascular: denies: Chest Pain Respiratory: denies: Cough, SOB Gastrointestinal: denies: Abdominal Pain, Constipation, Diarrhea, Melena, Rectal Bleeding, Vomiting, Vomiting Blood Musculoskeletal: reports: Extremity Pain (B/L leg pain, resolved last 09/16) Physical Exam-GI Vital Signs: Vital Signs Temperature 97.6 F 09/25/19 11:00 Pulse Rate 102 H 09/25/19 11:00 Respiratory Rate 18 09/25/19 11:00 Blood Pressure 134/89 09/25/19 11:00 O2 Sat by Pulse Oximetry (%) 96 09/25/19 11:00 Constitutional: Yes: Calm Eyes: No: Sclera Icterus Cardiovascular: Yes: Regular Rate and Rhythm Respiratory: Yes: CTA Bilaterally Gastrointestinal Inspection: No: Distention, Scars ...Auscultate: Yes: Normoactive Bowel Sounds ...Palpate: Yes: Soft. No: Hepatomegaly, Splenomegaly, Tenderness ...Percussion: No: Tympanitic Edema: No (No LE edema) Neurological: Yes: Alert, Oriented Labs: CBC, BMP 09/25/19 08:10 09/25/19 08:10 INR, PTT INR 1.06 (0.83-1.09) 09/25/19 08:10 Fibrinogen 334.0 mg/dL (238-498) 09/25/19 06:00 Hepatic Panel Total Bilirubin 0.5 mg/dL (0.2-1) 09/25/19 08:10 AST 284 U/L (15-37) H 09/25/19 08:10 ALT 392 U/L (13-61) H 09/25/19 08:10 Alkaline Phosphatase 198 U/L (45-117) H 09/25/19 08:10 Albumin 3.0 g/dl (3.4-5.0) L 09/25/19 08:10 Imaging - Results Ultrasound: Report Reviewed Assessment/Plan Abnormal liver chemistries: Improving trend Suspect reactive systemic infectious etiology. Drug induced liver injury could still be considered, however only received three doses of doxycycline and was having fevers prior to Abx started. Advise: Avoidance of hepatotoxic agents Follow-up acute hepatitis A/B panel, ordered HCV Ab Babesiosis would need to be considered in the differential. Blood parasite smear has already been ordered Ordered EBV PCR for AM Ordered Triple phase MRI of the abdomen with and without contrast w/ MRCP to further evaluate liver nodules and biliary tract. Primary biliary tract pathology lower on differential. Avoid hepatotoxic agents, stopped tylenol. Monitor LFT's Will follow
--- NOTE | 2019-09-25 15:52 | CONS ---
INFECTIOUS DISEASE CONSULTATION DATE OF CONSULTATION: DATE OF DICTATION: 09/25/2019 HISTORY: Patient evaluated for fever. She is a 39-year-old previously healthy female who is evaluated for unexplained fever, thrombocytopenia and elevated liver enzymes. She was well until 1 week ago when she developed right-sided abdominal pain. She presented to the emergency room where she was evaluated. She had also reported fever and nausea. A sonogram was performed as well as CAT scan of the abdomen and pelvis. She was found to have enlarged right inguinal and pelvic nodes. The appendix was partially visualized and showed no definite abnormality. There was some free intraperitoneal fluid and there was no definite retroperitoneal or upper abdominal lymphadenopathy. The spleen was mildly enlarged. The sonogram done transvaginally showed a 1 cm right ovarian cyst. She was noted on exam to have cervical motion tenderness. She was discharged home with doxycycline for presumed PID. GC and chlamydia probes were negative. The patient went home and continued to experience fevers to as high as 102. Prior to presenting to her primary care physician she slipped down the stairs and sustained trauma to her lower back and her right elbow resulting in contusions. Upon evaluation by her PMD she was noted to be leukopenic with elevated liver enzymes. A COVID-19 probe was reportedly negative. At the present time she is awake and alert. She feels comfortable. She has no focal complaint. Her temperature in the hospital has generally been normal with 1 low grade spike of 99.8. She denies any sinusitis, sore throat, earache, and no complaints of chest pain, shortness of breath, cough or sputum production. No dysuria or hematuria. No vomiting or diarrhea. She denies any insect or animal bites or scratches. She has developed no rashes. She denies any ill contacts. She has not been in contact with anyone with coronavirus. She has not traveled. She was seen in consultation by Hematology/Oncology who ordered flow cytometry, HIV test and connective tissue serologies. PAST MEDICAL HISTORY: Negative. ALLERGIES: No known allergies. MEDICATIONS PRIOR TO ADMISSION: Include doxycycline. SOCIAL HISTORY: She resides in the community. She lives at home with her parents. She is a nonsmoker, nondrinker, works for the [employer]. SYSTEMS REVIEW: Neurologic: No loss of consciousness, seizure activity, focal weakness. Cardiac: Negative chest pain or palpitations. Respiratory: Negative cough or sputum production. Gastrointestinal: Negative vomiting or diarrhea. Genitourinary: Negative for urinary tract infection. LABORATORY DATA: White count 4.4 with 21 neutrophils, 74 lymphocytes, 3 monocytes, hematocrit 31.7, platelets 108. ESR pending. BUN 71, creatinine 0.8, total bilirubin 0.5, alkaline phosphatase 198, AST 284, ALT 392. C-reactive protein 4.2, LDH 498, ferritin 289. Urine analysis 12 white cells. HIV test is pending as are hepatitis serologies. PHYSICAL EXAMINATION: General: She is awake and alert seated in bed. She is in no acute distress. She is not acutely toxic appearing. Vital Signs: Temperature 98.2, T-max 99.8, blood pressure 137/75, pulse 102 regular, respirations 18 per minute. HEENT: Sclerae are anicteric. Oropharynx negative. Neck: Supple. No palpable nodes. Heart: Sounds S1, S2. No murmur. Lungs: Clear. Abdomen: Obese, soft, nontender. No palpable liver or spleen. Extremities: Negative for edema. Negative Homans sign. There is a contusion present over the lower back on the right side as well as a contusion on the right elbow. IMPRESSION: 1. Fever of unknown origin. 2. Leukocytosis. 3. Thrombocytopenia. Etiology of fever, leukocytosis, thrombocytopenia not clear. Considerations include viral illness such as COVID-19, [place] virus, CMV. Other considerations include tick-related illnesses such as Lyme, Anaplasma and Babesia. Await COVID-19 testing. Obtain serology for EBV, CMV, hepatitis panel. Serology for lyme, Anaplasma and Babesia. Will observe off antibiotic therapy at this time as patient is not acutely toxic appearing and source of fever not clear. Thank you for the kind referral. GOVIND PROCTOR M.D. [id number]
--- NOTE | 2019-09-25 18:50 | PN ---
Teaching Attending Note Name of Resident: Garrison Garza ATTENDING PHYSICIAN STATEMENT I saw and evaluated the patient. I reviewed the resident's note and discussed the case with the resident. I agree with the resident's findings and plan as documented. 39 yo F with initial fever and RLQ/R. groin discomfort, d/c'd home on doxycycline. Returns 1 week later with persistent fevers, however resolved R. groin pains. No fevers during this inpatient stay. Noted wbc shift to lymphocytosis, and development of thrombocytopenia. Mild/moderate splenomegaly on CT 09/17, progressed on sono 09/24. Moderate normocytic anemia. Blood smear: +few atypical lymphocytes, no early myeloid series seen. Pending peripheral flow cytometry. ID w/u in process. Denies wt loss, or night sweats. No prior h/o abnormal cbc. Nl lymphocyte count on 09-18-2019 -follow-up peripheral flow cytometry -follow-up ID recommendations. -consider repeat CBC in 1 or 2 weeks as outpt. -low suspicion for a malignant process. -to follow-up. CBC WBC 4.4 K/mm3 (4.0-10.0) 09/25/19 08:10 RBC 3.57 M/mm3 (3.60-5.2) L 09/25/19 08:10 Hgb 10.6 GM/dL (10.7-15.3) L 09/25/19 08:10 Hct 31.7 % (32.4-45.2) L 09/25/19 08:10 MCV 88.9 fl (80-96) 09/25/19 08:10 MCH 29.8 pg (25.7-33.7) 09/25/19 08:10 MCHC 33.5 g/dl (32.0-36.0) 09/25/19 08:10 RDW 13.7 % (11.6-15.6) 09/25/19 08:10 Plt Count 108 K/MM3 (134-434) L 09/25/19 08:10 MPV 8.7 fl (7.5-11.1) 09/25/19 08:10 Absolute Neuts (auto) 0.9 K/mm3 (1.5-8.0) L 09/25/19 08:10 Neutrophils % 21.0 % (42.8-82.8) L D 09/25/19 08:10 Neutrophils % (Manual) 16.0 % (42.8-82.8) L 09/25/19 08:10 Band Neutrophils % 0.0 % 09/25/19 08:10 Lymphocytes % 74.1 % (8-40) H 09/25/19 08:10 Lymphocytes % (Manual) 56.0 % (8-40) H D 09/25/19 08:10 Monocytes % 3.5 % (3.8-10.2) L 09/25/19 08:10 Monocytes % (Manual) 6 % (3.8-10.2) 09/25/19 08:10 Eosinophils % 0.7 % (0-4.5) 09/25/19 08:10 Eosinophils % (Manual) 0.0 % (0-4.5) 09/25/19 08:10 Basophils % 0.7 % (0-2.0) 09/25/19 08:10 Basophils % (Manual) 0.0 % (0-2.0) 09/25/19 08:10 Myelocytes % (Man) 0 % (0-2) 09/25/19 08:10 Promyelocytes % (Man) 0 % (0-2) 09/25/19 08:10 Blast Cells % (Manual) 0 % (0-0) 09/25/19 08:10 Nucleated RBC % 0 % (0-0) 09/25/19 08:10 Metamyelocytes 2 % (0-2) D 09/25/19 08:10 Hypochromia 0 09/25/19 08:10 Platelet Estimate Decreased 09/25/19 08:10 Polychromasia 0 09/25/19 08:10 Poikilocytosis 0 09/25/19 08:10 Anisocytosis 1+ 09/25/19 08:10 Microcytosis 1+ 09/25/19 08:10 Macrocytosis 0 09/25/19 08:10 ESR 38 mm/hr (0-20) H 09/25/19 08:10
[2019-09-26] MEDS ORDERED: IBUPROFEN 200 MG TABLET PO ONE (04:13)
[2019-09-26 08:06] LABS: BASO % 0.4 % (0-2.0); EOS % 0.7 % (0-4.5); HEMATOCRIT 30.5 % (32.4-45.2); HEMOGLOBIN 10.1 GM/dL (10.7-15.3); MCH 29.5 pg (25.7-33.7); MEAN CELL VOLUME 89.2 fl (80-96); MEAN PLT VOLUME 8.9 fl (7.5-11.1); MONO % 6.3 % (3.8-10.2); NEUT % 17.6 % (42.8-82.8); PLATELET COUNT 123 K/MM3 (134-434); RBC 3.42 M/mm3 (3.60-5.2); RDW 13.8 % (11.6-15.6); WHITE BLOOD COUNT 5.7 K/mm3 (4.0-10.0)
[2019-09-26 08:24] LABS: ALBUMIN 2.9 g/dl (3.4-5.0); BILIRUBIN,TOTAL 0.4 mg/dL (0.2-1); BLOOD UREA NITROGEN 6.8 mg/dL (7-18); CALCIUM 8.5 mg/dL (8.5-10.1); CREATININE 0.8 mg/dL (0.55-1.3); TOT PROT 6.4 g/dl (6.4-8.2)
--- NOTE | 2019-09-26 09:32 | DS ---
Physical Examination Vital Signs: Vital Signs Temperature 98.7 F 09/26/19 05:42 Pulse Rate 97 H 09/26/19 05:42 Respiratory Rate 18 09/26/19 05:42 Blood Pressure 133/72 09/26/19 05:42 O2 Sat by Pulse Oximetry (%) 99 09/26/19 05:42 Cardiovascular: Yes: Regular Rate and Rhythm Respiratory: Yes: Regular, CTA Bilaterally Gastrointestinal: Yes: Normal Bowel Sounds, Soft. No: Tenderness Edema: No Labs: CBC, BMP 09/26/19 07:00 09/26/19 07:00 Discharge Summary Problems reviewed: Yes Reason For Visit: FEVER Current Active Problems Abnormal LFTs (Acute) Fever (Acute) Lymphadenopathy (Acute) PID (acute pelvic inflammatory disease) (Acute) Thrombocytopenia (Acute) Hospital Course: - Problems (1) Lymphadenopathy Assessment/Plan: -Oncology on board -Labs ordered -CT Chest nad Code(s): R59.1 - GENERALIZED ENLARGED LYMPH NODES (2) Abnormal LFTs Assessment/Plan: -R/O Viral etiology VS meds -Trending UP -Hepatitis panel ordered -US noted -MRI done results pending -GI consult Code(s): R94.5 - ABNORMAL RESULTS OF LIVER FUNCTION STUDIES (3) Thrombocytopenia Assessment/Plan: -HEM on Board -Follow labs Code(s): D69.6 - THROMBOCYTOPENIA, UNSPECIFIED (4) Fever Assessment/Plan: Was spiking at home on abx monitor trends ID consult Code(s): R50.9 - FEVER, UNSPECIFIED Qualifiers: Fever type: unspecified Qualified Code(s): R50.9 - Fever, unspecified (5) Pelvic pain Assessment/Plan: Resolved gc and chlamydia negative Code(s): R10.2 - PELVIC AND PERINEAL PAIN - Instructions Referrals: Nina Smalls MD [Primary Care Provider] - 1 Week Disposition: HOME - Home Medications Comprehensive Discharge Medication List: Ambulatory Orders Escitalopram Oxalate [Lexapro -] 10 mg PO DAILY 09/18/19
[2019-09-26] MEDS: D5-1/2NS+20 MEQ KCL - 20 MEQ/1,000 ML INFUS.BAG IV SCH (10:19)
[2019-09-26 10:24] LABS: ANISOCYTOSIS 1+; MACROCYTOSIS 0; PLATELET ESTIMATE DECREASED
--- NOTE | 2019-09-26 14:44 | PN ---
Progress Note, Physician History of Present Illness: OOB IN CHAIR NO C/O ABDOMINAL PAIN NO N/V + BM NO C/O FEVER/ CHILLS LOW GRADE TEMP NOTED + LYMPHOCYTOSIS VIRAL, TICK SEROLOGY PENDING COVID-19 NEGATIVE PRIOR TO ADMISSION - Current Medication List Current Medications: Active Medications Potassium Chloride/Dextrose/Sod Cl (D5-1/2ns+20 Meq Kcl -) 20 meq in 1,000 mls @ 83 mls/hr IV ASDIR MARY Last Admin: 09/26/19 10:19 Dose: 83 mls/hr Documented by: - Objective Vital Signs: Vital Signs Temperature 99 F 09/26/19 08:35 Pulse Rate 87 09/26/19 08:35 Respiratory Rate 17 09/26/19 08:35 Blood Pressure 133/69 09/26/19 08:35 O2 Sat by Pulse Oximetry (%) 98 09/26/19 08:35 Constitutional: Yes: No Distress Eyes: Yes: Conjunctiva Clear Cardiovascular: Yes: Regular Rate and Rhythm, S1, S2 Respiratory: Yes: CTA Bilaterally Gastrointestinal: Yes: Normal Bowel Sounds, Soft, Abdomen, Obese. No: Tenderness Edema: No Labs: CBC, BMP 09/26/19 07:00 09/26/19 07:00 INR, PTT INR 1.06 (0.83-1.09) 09/25/19 08:10 Fibrinogen 334.0 mg/dL (238-498) 09/25/19 06:00 Assessment/Plan FUO FEVER RESOLVED LYMPHOCYTOSIS ? VIRAL ILLNESS R/O TICK-RELATED ILLNESS AWAIT SEROLOGIES OBSERVE OFF ANTIBIOTICS DISCUSSED WITH PATIENT'S MOTHER AT BEDSIDE
[2019-09-26 14:48] VITALS: BP 157/87; PULSE 106; TEMP 99.1
--- NOTE | 2019-09-26 16:35 | PN.GI ---
GI Progress Note Subjective: GI NOte: Fever has defervesced. MRI indicated that the hepatic lesions are hemangiomas although one lacks all of the typical features. A 2.4cm lymph node is also seen anterior to the right hepatic lobe. Given these issues a repeat MRI with contrast has been advised in 6 months. Dania is also found to have a fatty liver which I discussed with her and her mother and I have advised a Fibroscan in our office. - Objective Vital Signs: Vital Signs Temperature 99.1 F 09/26/19 14:47 Pulse Rate 106 H 09/26/19 14:47 Respiratory Rate 17 09/26/19 14:47 Blood Pressure 157/87 09/26/19 14:47 O2 Sat by Pulse Oximetry (%) 98 09/26/19 14:47 Laboratory Tests 09/24/19 09/24/19 09/25/19 14:00 19:00 08:10 Plt Count PT with INR INR Iron TIBC Iron Saturation Unsaturated IBC Ferritin Total Bilirubin 0.7 0.5 GGT 190 H AST 372 H 284 H ALT 427 H 392 H Alkaline Phosphatase 216 H 198 H LD Total 498 H JOSHUA & SPEP Interp PRANEETH Screen Babesia microti DNA PCR Lyme Screen IgG & IgM Lyme IgM 23 kDa Band Lyme IgM 39 kDa Band Lyme IgM 41 kDa Band EBV EA IgG Ab Interp EBV Nuclear Antigen Hep A IgM Ab Confirm Negative Hep Bs Antigen Negative Hep B Core IgM Ab Negative Hepatitis C Ab (EIA) <0.1 HIV 1&2 Ag/Ab, 4th Gen 09/25/19 09/25/19 09/25/19 08:10 08:10 08:10 Plt Count PT with INR 12.50 INR 1.06 Iron TIBC Iron Saturation Unsaturated IBC Ferritin Total Bilirubin GGT AST ALT Alkaline Phosphatase LD Total JOSHUA & SPEP Interp Pending PRANEETH Screen Pending Babesia microti DNA PCR Lyme Screen IgG & IgM Lyme IgM 23 kDa Band Lyme IgM 39 kDa Band Lyme IgM 41 kDa Band EBV EA IgG Ab Interp EBV Nuclear Antigen Hep A IgM Ab Confirm Hep Bs Antigen Hep B Core IgM Ab Hepatitis C Ab (EIA) HIV 1&2 Ag/Ab, 4th Gen 09/25/19 09/25/19 09/25/19 08:10 08:10 11:45 Plt Count PT with INR INR Iron 26 L TIBC 265 Iron Saturation 9 L Unsaturated IBC 239 Ferritin 289.4 Total Bilirubin GGT AST ALT Alkaline Phosphatase LD Total JOSHUA & SPEP Interp PRANEETH Screen Babesia microti DNA PCR Lyme Screen IgG & IgM Lyme IgM 23 kDa Band Lyme IgM 39 kDa Band Lyme IgM 41 kDa Band EBV EA IgG Ab Interp Pending EBV Nuclear Antigen Hep A IgM Ab Confirm Hep Bs Antigen Hep B Core IgM Ab Hepatitis C Ab (EIA) HIV 1&2 Ag/Ab, 4th Gen Non reactive 09/26/19 09/26/19 09/26/19 07:00 07:00 07:00 Plt Count PT with INR INR Iron TIBC Iron Saturation Unsaturated IBC Ferritin Total Bilirubin 0.4 GGT AST 161 H ALT 290 H Alkaline Phosphatase 179 H LD Total JOSHUA & SPEP Interp PRANEETH Screen Babesia microti DNA PCR Lyme Screen IgG & IgM Pending Lyme IgM 23 kDa Band Pending Lyme IgM 39 kDa Band Pending Lyme IgM 41 kDa Band Pending EBV EA IgG Ab Interp EBV Nuclear Antigen Pending Hep A IgM Ab Confirm Hep Bs Antigen Hep B Core IgM Ab Hepatitis C Ab (EIA) HIV 1&2 Ag/Ab, 4th Gen 09/26/19 09/26/19 07:00 07:00 Plt Count 123 L PT with INR INR Iron TIBC Iron Saturation Unsaturated IBC Ferritin Total Bilirubin GGT AST ALT Alkaline Phosphatase LD Total JOSHUA & SPEP Interp PRANEETH Screen Babesia microti DNA PCR Pending Lyme Screen IgG & IgM Lyme IgM 23 kDa Band Lyme IgM 39 kDa Band Lyme IgM 41 kDa Band EBV EA IgG Ab Interp EBV Nuclear Antigen Hep A IgM Ab Confirm Hep Bs Antigen Hep B Core IgM Ab Hepatitis C Ab (EIA) HIV 1&2 Ag/Ab, 4th Gen Constitutional: Calm ...Auscultate: Yes: Normoactive Bowel Sounds ...Palpate: Yes: Soft, Other (nontender) Labs: CBC, BMP 09/26/19 07:00 09/26/19 07:00 INR, PTT INR 1.06 (0.83-1.09) 09/25/19 08:10 Fibrinogen 334.0 mg/dL (238-498) 09/25/19 06:00 Assessment/Plan Impression: - Resolving LFTs are consistent with a reactive hepatopathy to an infectious process but further evaluation of her fatty liver has been advised to exclude RINALDI - Liver hemangiomas, 1 of 3 with less than all typical features by MRI Plan: -- Fibroscan in our office then followup with Dr Ramsey -- Repeat MRI of the liver with contrast has been advised in 6 months -- Diet and weight loss -- No GI objections to discharge Problem List - Problems (1) Abnormal LFTs Code(s): R94.5 - ABNORMAL RESULTS OF LIVER FUNCTION STUDIES (2) Liver masses Code(s): R16.0 - HEPATOMEGALY, NOT ELSEWHERE CLASSIFIED (3) Hemangioma of liver Code(s): D18.03 - HEMANGIOMA OF INTRA-ABDOMINAL STRUCTURES (4) Fatty (change of) liver, not elsewhere classified Code(s): K76.0 - FATTY (CHANGE OF) LIVER, NOT ELSEWHERE CLASSIFIED (5) Fever Code(s): R50.9 - FEVER, UNSPECIFIED Qualifiers: Fever type: unspecified Qualified Code(s): R50.9 - Fever, unspecified (6) Lymphadenopathy Code(s): R59.1 - GENERALIZED ENLARGED LYMPH NODES (7) PID (acute pelvic inflammatory disease) Code(s): N73.0 - ACUTE PARAMETRITIS AND PELVIC CELLULITIS (8) Thrombocytopenia Code(s): D69.6 - THROMBOCYTOPENIA, UNSPECIFIED (9) Pelvic pain Code(s): R10.2 - PELVIC AND PERINEAL PAIN
[2019-09-26 17:07] LABS: FREE KAPPA,SERUM 39.8 mg/L (3.3-19.4)
--- NOTE | 2019-09-26 20:15 | PATH ---
Surgical Pathology Report Patient Name: INGE [facility]. Rec. #: [id number] /Age/Gender: 1980 (Age: 39) / F Account: [id number] Location: [address] [place] [address] Taken: 09/25/2019 Received: 09/25/2019 Reported: 09/26/2019 Physicians: Danna Palmer M.D. Specimen(s) Received PERIPHERAL BLOOD Clinical History Neutropenia, thrombocytopenia, Lymphadenopathy Final Diagnosis COMPREHENSIVE FLOW CYTOMETRY performed and interpreted at [facility], [place], [place] ([id number]) INTERPRETATION: Granulocytopenia with no discrete atypical immunophenotypic findings seen. Phenotype: Granulocytes are proportionally decreased but exhibit immunophenotypic evidence of full maturation with no detectable aberrant marker expression. Blasts are not increased. Lymphocytes are proportionally increased and include polyclonal B cells, NK cells and immunophenotypically normal T cells with a decreased CD4:CD8. T-cell large granular lymphocytes (T-LGLs) represent 10% of WBCs. Cytomorphology: Smears from flow sample show no increase in myeloblasts or atypical lymphocytes. MYELODYSPLASIA FISH PANEL performed and interpreted at [facility] in [place], [place] ([id number]) shows the following. INTERPRETATION: No evidence of deletion 5q or monosomy 5 is present. No evidence of deletion 7q or monosomy 7 is present. No evidence of trisomy 8 (+8) is present. No evidence of deletion 13q14.2 is present. No evidence of a rearrangement of 11q23. No evidence of a deletion of the p53 (17p13) locus. No evidence of deletion 20q12 is present. See [facility] reports for additional details. Electronically Signed Janeth Joseph M.D. Addendum Reported: 10/03/2019 Addendum Diagnosis CYTOGENETIC KARYOTYPE ANALYSIS performed and interpreted at [facility], [place], [place] ([id number]) TEST RESULTS: Tissue Culture Failure. DIAGNOSTIC INTERPRETATION: This unstimulated peripheral blood specimen did not produce any analyzable metaphase cells and, therefore, chromosome analysis is not possible. A bone marrow aspirate, when clinically appropriate, is recommended. See [facility] report for additional details. Janeth Joseph M.D. Gross Description Received are 2 green top tubes and 2 lavender top tubes of peripheral blood which are sent to [facility]. 09/25/2019 [facility]09/25/2019
[2019-09-27 07:07] LABS: CMV IgM < 30.0 AU/mL (0.0-29.9)
[2019-09-29 15:07] LABS: TOTAL PROTEIN, URINE 11.7 mg/dL (Not Estab.)
--- NOTE | 2019-09-29 18:37 | PN.HO ---
Progress Note (short form) - Note Progress Note: Called patient -- discussed results of flow--neutropenia/TlGLs Imaging -- hepatosplenomagaly, generalized small sadenopathy abnormal LFTs ? infectious/ viral versus early lymphoproliferative disorder Discussed with patient that she needs close f/u with PMD/ hematology. Needs to come to ER if any symptoms--fevers/wt.loss/jandice. Discussed above concerns with her in detaail and communicated with PMD
== END 2019-09-26 17:09 | disposition home or self-care (01) | DRG 392 ==
LOC: JER 13:30 → JERBED 15:51 → J6S 17:52
PROVIDERS: ADMIT Family Medicine; ATTEND Family Medicine
DX: D18.03 Hemangioma of intra-abdominal structures (principal); N73.9 Female pelvic inflammatory disease, unspecified; R50.9 Fever, unspecified; R11.0 Nausea; N83.201 Unspecified ovarian cyst, right side; D69.6 Thrombocytopenia, unspecified; R94.5 Abnormal results of liver function studies; R10.2 Pelvic and perineal pain; D72.820 Lymphocytosis (symptomatic); K76.0 Fatty (change of) liver, not elsewhere classified; R16.2 Hepatomegaly with splenomegaly, not elsewhere classified; R59.1 Generalized enlarged lymph nodes
CPT/HCPCS: 36415; 71046-TC-FY; 71260-TC; 74183-TC; 76700-TC; 76856-TC; 80053; 80074; 81003; 82607; 82728; 82784; 82930; 82977; 83010; 83540; 83550; 83615; 83883; 84155; 84156; 84157; 84165; 84439; 84443; 84550; 84703; 85025; 85384; 85610; 85651; 85730; 86038; 86140; 86334; 86431; 86618; 86644; 86645; 86663; 86664; 87040; 87077; 87086; 87207; 87389; 87798; 87799; 88300-TC; 93005; 93010; 99285-25; A9579; Q9967

== ENCOUNTER 2022-08-18 16:00 | Day surgery (SDC) | payer BC, OTHER ==
[~2022-08-18 16:00] MED LIST: IRON SUCROSE COMPLEX 200 MG in SODIUM CHLORIDE 100 ML IVPB ONE
[2022-08-18 16:36] VITALS: RESP 20; TEMP 98.8
[2022-08-18 18:00] VITALS: BP 143/89; PULSE 82
== END 2022-08-18 17:15 | disposition home or self-care (01) ==
LOC: JONCNONCHE 16:00 → J7W 16:00 → JONCNONCHE 17:15
PROVIDERS: ATTEND Internal Medicine Hematology & Oncology
PROC: 3E033GC Introduction of Other Therapeutic Substance into Peripheral Vein, Percutaneous Approach (ICD-10-PCS; principal; 2022-08-18)
DX: E61.1 Iron deficiency (principal)
CPT/HCPCS: 96365

== ENCOUNTER 2022-08-25 15:26 | Day surgery (SDC) | payer BC, OTHER ==
[2022-08-25 17:03] VITALS: BP 144/86; PULSE 80; RESP 18
== END 2022-08-25 16:20 | disposition home or self-care (01) ==
LOC: JONCNONCHE 15:26 → J7W 15:27 → JONCNONCHE 16:20
PROVIDERS: ATTEND Internal Medicine Hematology & Oncology
PROC: 3E033GC Introduction of Other Therapeutic Substance into Peripheral Vein, Percutaneous Approach (ICD-10-PCS; principal; 2022-08-25)
DX: D50.9 Iron deficiency anemia, unspecified (principal)
CPT/HCPCS: 96365

== ENCOUNTER 2022-09-01 15:27 | Day surgery (SDC) | payer BC, OTHER ==
[2022-09-01 16:03] VITALS: RESP 18; TEMP 98.6
[2022-09-01 16:14] VITALS: BP 119/68; PULSE 83
== END 2022-09-01 16:30 | disposition home or self-care (01) ==
LOC: JONCNONCHE 15:27
PROVIDERS: ATTEND Internal Medicine Hematology & Oncology
PROC: 3E033GC Introduction of Other Therapeutic Substance into Peripheral Vein, Percutaneous Approach (ICD-10-PCS; principal; 2022-09-01)
DX: D50.9 Iron deficiency anemia, unspecified (principal)
CPT/HCPCS: 96365

== ENCOUNTER 2022-09-08 15:36 | Day surgery (SDC) | payer BC, OTHER ==
[~2022-09-08 15:36] MED LIST changes: -IRON SUCROSE COMPLEX 200 MG in SODIUM CHLORIDE 100 ML IVPB ONE; +IRON SUCROSE INJECTION 200 MG in SODIUM CHLORIDE 100 ML IVPB ONE
[2022-09-08 17:01] VITALS: RESP 18; TEMP 98.4
[2022-09-08 17:03] VITALS: BP 102/65; PULSE 75
== END 2022-09-08 16:50 | disposition home or self-care (01) ==
LOC: JONCNONCHE 15:36
PROVIDERS: ATTEND Internal Medicine Hematology & Oncology
PROC: 3E033GC Introduction of Other Therapeutic Substance into Peripheral Vein, Percutaneous Approach (ICD-10-PCS; principal; 2022-09-08)
DX: D50.9 Iron deficiency anemia, unspecified (principal)
CPT/HCPCS: 96365; J1756

== ENCOUNTER 2023-01-05 15:35 | Day surgery (SDC) | payer BC, OTHER ==
[2023-01-05 16:12] VITALS: RESP 18
[2023-01-05 16:23] VITALS: TEMP 98.2
[2023-01-05 16:38] VITALS: BP 100/58; PULSE 82
== END 2023-01-05 16:35 | disposition home or self-care (01) ==
LOC: JONCNONCHE 15:35 → J7W 15:35 → JONCNONCHE 16:35
PROVIDERS: ATTEND Internal Medicine Hematology & Oncology
PROC: 3E033GC Introduction of Other Therapeutic Substance into Peripheral Vein, Percutaneous Approach (ICD-10-PCS; principal; 2023-01-05)
DX: D50.8 Other iron deficiency anemias (principal)
CPT/HCPCS: 96365; J1756

== ENCOUNTER 2023-01-12 15:25 | Day surgery (SDC) | payer BC, OTHER ==
[2023-01-12 18:24] VITALS: RESP 18; TEMP 97.9
[2023-01-12 18:26] VITALS: BP 106/60; PULSE 78
== END 2023-01-12 17:00 | disposition home or self-care (01) ==
LOC: JONCNONCHE 15:25 → J7W 15:25 → JONCNONCHE 17:00
PROVIDERS: ATTEND Internal Medicine Hematology & Oncology
PROC: 3E033GC Introduction of Other Therapeutic Substance into Peripheral Vein, Percutaneous Approach (ICD-10-PCS; principal; 2023-01-12)
DX: E61.1 Iron deficiency (principal)
CPT/HCPCS: 96365; J1756

== ENCOUNTER 2023-01-19 15:43 | Day surgery (SDC) | payer BC, OTHER ==
[~2023-01-19 15:43] MED LIST changes: +IRON SUCROSE COMPLEX 200 MG in SODIUM CHLORIDE 100 ML IVPB ONE; -IRON SUCROSE INJECTION 200 MG in SODIUM CHLORIDE 100 ML IVPB ONE
[2023-01-19 15:48] VITALS: RESP 18; TEMP 98.9
[2023-01-19 16:11] VITALS: BP 121/64; PULSE 86
== END 2023-01-19 16:11 | disposition home or self-care (01) ==
LOC: JONCNONCHE 15:43 → J7W 15:43 → JONCNONCHE 16:11
PROVIDERS: ATTEND Internal Medicine Hematology & Oncology
PROC: 3E033GC Introduction of Other Therapeutic Substance into Peripheral Vein, Percutaneous Approach (ICD-10-PCS; principal; 2023-01-19)
DX: E61.1 Iron deficiency (principal)
CPT/HCPCS: 96365

== ENCOUNTER 2023-01-26 15:22 | Day surgery (SDC) | payer BC, OTHER ==
[2023-01-26 17:48] VITALS: BP 114/68; PULSE 87; RESP 20; TEMP 98.8
== END 2023-01-26 16:44 | disposition home or self-care (01) ==
LOC: JONCNONCHE 15:22 → J7W 15:22 → JONCNONCHE 16:44
PROVIDERS: ATTEND Internal Medicine Hematology & Oncology
PROC: 3E033GC Introduction of Other Therapeutic Substance into Peripheral Vein, Percutaneous Approach (ICD-10-PCS; principal; 2023-01-26)
DX: E61.1 Iron deficiency (principal)
CPT/HCPCS: 96365

== ENCOUNTER 2023-03-30 15:35 | Day surgery (SDC) | payer BC, OTHER ==
[2023-03-30 18:11] VITALS: RESP 18; TEMP 98.1
[2023-03-30 18:12] VITALS: BP 113/58; PULSE 70
== END 2023-03-30 17:00 | disposition home or self-care (01) ==
LOC: JONCNONCHE 15:35
PROVIDERS: ATTEND Internal Medicine Hematology & Oncology
PROC: 3E033GC Introduction of Other Therapeutic Substance into Peripheral Vein, Percutaneous Approach (ICD-10-PCS; principal; 2023-03-30)
DX: E61.1 Iron deficiency (principal)
CPT/HCPCS: 96365

== ENCOUNTER 2023-04-06 15:25 | Day surgery (SDC) | payer BC, OTHER ==
[2023-04-06] MEDS: IRON SUCROSE COMPLEX 200 MG in SODIUM CHLORIDE 100 ML IVPB ONE (15:36)
[2023-04-06 15:39] VITALS: RESP 18; TEMP 98.5
[2023-04-06 17:14] VITALS: BP 111/55; PULSE 75
== END 2023-04-06 16:30 | disposition home or self-care (01) ==
LOC: J7W 15:25 → JONCNONCHE 15:25
PROVIDERS: ATTEND Internal Medicine Hematology & Oncology
PROC: 3E033GC Introduction of Other Therapeutic Substance into Peripheral Vein, Percutaneous Approach (ICD-10-PCS; principal; 2023-04-06)
DX: D50.9 Iron deficiency anemia, unspecified (principal)
CPT/HCPCS: 96365

== ENCOUNTER 2023-04-13 16:15 | Day surgery (SDC) | payer BC, OTHER ==
[2023-04-13] MEDS: IRON SUCROSE COMPLEX 200 MG in SODIUM CHLORIDE 100 ML IVPB ONE (15:50)
[2023-04-13 17:54] VITALS: RESP 18; TEMP 98.5
[2023-04-13 17:56] VITALS: BP 111/65; PULSE 73
== END 2023-04-13 16:45 | disposition home or self-care (01) ==
LOC: JONCNONCHE 16:15 → J7W 16:16 → JONCNONCHE 16:45
PROVIDERS: ATTEND Internal Medicine Hematology & Oncology
PROC: 3E033GC Introduction of Other Therapeutic Substance into Peripheral Vein, Percutaneous Approach (ICD-10-PCS; principal; 2023-04-13)
DX: E61.1 Iron deficiency (principal)
CPT/HCPCS: 96365

== ENCOUNTER 2023-04-20 15:30 | Day surgery (SDC) | payer BC, OTHER ==
[2023-04-20] MEDS: IRON SUCROSE INJECTION 200 MG in SODIUM CHLORIDE 100 ML IVPB ONE (15:53)
[2023-04-20 19:06] VITALS: RESP 18; TEMP 97.7
[2023-04-20 19:08] VITALS: BP 126/76; PULSE 92
== END 2023-04-20 16:45 | disposition home or self-care (01) ==
LOC: J7W 15:30 → JONCNONCHE 15:30
PROVIDERS: ATTEND Internal Medicine Hematology & Oncology
PROC: 3E033GC Introduction of Other Therapeutic Substance into Peripheral Vein, Percutaneous Approach (ICD-10-PCS; principal; 2023-04-20)
DX: D50.9 Iron deficiency anemia, unspecified (principal)
CPT/HCPCS: 96365; J1756

== ENCOUNTER 2023-04-26 04:30 | Day surgery (SDC) | payer BC, OTHER ==
[2023-04-19 16:10] VITALS: BMI 40.2
[2023-04-26 11:32] VITALS: TEMP 97.8
[2023-04-26 12:04] VITALS: BP 112/63; PULSE 78; RESP 15
== END 2023-04-26 12:05 | disposition home or self-care (01) ==
LOC: JASU-ENDO 04:30
PROVIDERS: ATTEND Internal Medicine Gastroenterology
PROC: 0DJD8ZZ Inspection of Lower Intestinal Tract, Via Natural or Artificial Opening Endoscopic (ICD-10-PCS; 2023-04-26)
PROC: 0DB98ZX Excision of Duodenum, Via Natural or Artificial Opening Endoscopic, Diagnostic (ICD-10-PCS; 2023-04-26)
PROC: 0DB78ZX Excision of Stomach, Pylorus, Via Natural or Artificial Opening Endoscopic, Diagnostic (ICD-10-PCS; 2023-04-26)
PROC: 0DB68ZX Excision of Stomach, Via Natural or Artificial Opening Endoscopic, Diagnostic (ICD-10-PCS; 2023-04-26)
PROC: 0DJD8ZZ Inspection of Lower Intestinal Tract, Via Natural or Artificial Opening Endoscopic (ICD-10-PCS; principal; 2023-04-26 11:00)
DX: D50.9 Iron deficiency anemia, unspecified (principal); K29.80 Duodenitis without bleeding; K29.50 Unspecified chronic gastritis without bleeding; K31.A11 Gastric intestinal metaplasia without dysplasia, involving the antrum
CPT/HCPCS: 88305-TC; 88342-TC

== ENCOUNTER 2024-08-15 15:33 | Day surgery (SDC) | payer OTHER, BC ==
[2024-08-15] MEDS: IRON SUCROSE INJECTION 100 MG in SODIUM CHLORIDE 100 ML IVPB ONE (16:40)
[2024-08-15 17:15] VITALS: PULSE 87; TEMP 98.2
[2024-08-15 17:42] VITALS: BP 108/63; RESP 18
== END 2024-08-15 17:44 | disposition home or self-care (01) ==
LOC: JONCNONCHE 15:33 → J7W 15:33 → JONCNONCHE 17:44
PROVIDERS: ATTEND Internal Medicine Hematology & Oncology
PROC: 3E033GC Introduction of Other Therapeutic Substance into Peripheral Vein, Percutaneous Approach (ICD-10-PCS; principal; 2024-08-15)
DX: D50.9 Iron deficiency anemia, unspecified (principal)
CPT/HCPCS: 96365; J1756

== ENCOUNTER 2024-08-22 15:30 | Day surgery (SDC) | payer OTHER, BC ==
[2024-08-22] MEDS: IRON SUCROSE INJECTION 100 MG in SODIUM CHLORIDE 100 ML IVPB ONE (15:35)
[2024-08-22 16:58] VITALS: RESP 20; TEMP 98.9
[2024-08-22 17:00] VITALS: BP 103/58; PULSE 57
== END 2024-08-22 16:40 | disposition home or self-care (01) ==
LOC: J7W 15:30 → JONCNONCHE 15:30
PROVIDERS: ATTEND Internal Medicine Hematology & Oncology
PROC: 3E033GC Introduction of Other Therapeutic Substance into Peripheral Vein, Percutaneous Approach (ICD-10-PCS; principal; 2024-08-22)
DX: D64.9 Anemia, unspecified (principal)
CPT/HCPCS: J1756